=== PATIENT | male | born 1990 | race Caucasian/White ===

== ENCOUNTER 2018-04-23 06:50 | Emergency (ER) | payer OTHER, BC ==
--- NOTE | 2018-04-23 07:38 | ER Document Report ---
ED General - General Chief Complaint: Accidental Overdose Stated Complaint: POSSIBLE OVER DOSE Time Seen by Provider: 04/23/18 06:59 Mode of Arrival: Ambulatory Information source: Patient Notes: 28-year-old male with no reported past medical history presents with concern for exposure to opiates. 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 Patient does not know whether he inhaled it but states that shortly afterwards he got lightheaded and self-administered 5 mg of intranasal Narcan. Patient currently complaining of lightheadedness, a heavy chest and a warm flushed feeling throughout his body.. TRAVEL OUTSIDE OF THE [place] IN LAST 30 DAYS: No - HPI Onset: Just prior to arrival Onset/Duration: Sudden Quality of pain: No pain Severity: None Associated symptoms: Body/muscle aches, Headache Exacerbated by: Denies Relieved by: Denies Similar symptoms previously: No Recently seen / treated by doctor: No Past Medical History - General Information source: Patient - Social History Smoking Status: Never Smoker Chew tobacco use (# tins/day): Yes Smoking Education Provided: Yes Frequency of alcohol use: Occasional Drug Abuse: None Lives with: Family Family History: Reviewed & Not Pertinent Patient has suicidal ideation: No Patient has homicidal ideation: No - Medical History Medical History: Negative Review of Systems - Review of Systems Notes: REVIEW OF SYSTEMS: CONSTITUTIONAL : Denies fever, chills, or sweats. Denies recent illness. Denies weight loss, recent hospitalizations. EENT: Denies visual changes, eye pain. Denies nasal or sinus congestion or discharge. Denies sore throat, oral lesions, difficulty swallowing. CARDIOVASCULAR: Denies chest pain. Denies palpitations. Denies lower extremity edema. RESPIRATORY: Denies cough, cold, or chest congestion. Denies shortness of breath, wheezing. GASTROINTESTINAL: Denies abdominal pain or distention. Denies nausea, vomiting , or diarrhea. Denies blood in vomitus, stools, or per rectum. Denies black, tarry stools. Denies constipation. GENITOURINARY: Denies difficulty urinating, painful urination, frequency, blood in urine, or vaginal discharge. MUSCULOSKELETAL: Denies back or neck pain or stiffness. Denies joint pain or swelling. SKIN: Denies rash, lesions or sores. HEMATOLOGIC : Denies easy bruising or bleeding. LYMPHATIC: Denies swollen glands. NEUROLOGICAL: Denies confusion or altered mental status. Denies passing out or loss of consciousness. Denies headache. Denies weakness or paralysis. Denies problems difficulty with ambulation, slurred speech. Denies sensory loss , numbness, or tingling. Denies seizures. PSYCHIATRIC: Denies anxiety or stress. Denies depression, suicidal ideation, or homicidal ideation. Denies visual or auditory hallucinations. Physical Exam - Vital signs Vitals: Resp Pulse Ox 12 100 04/23/18 06:56 04/23/18 06:56 - Notes Notes: PHYSICAL EXAMINATION: GENERAL: Well-appearing, well-nourished and in no acute distress. HEAD: Atraumatic, normocephalic. EYES: Pupils equal round and reactive to light, extraocular movements intact, sclera anicteric, conjunctiva are normal. ENT: Nares patent, oropharynx clear without exudates. Moist mucous membranes. NECK: Normal range of motion, supple without lymphadenopathy LUNGS: Breath sounds clear to auscultation bilaterally and equal. No wheezes rales or rhonchi. HEART: Regular rate and rhythm without murmurs ABDOMEN: Soft, nontender, nondistended abdomen. No guarding, no rebound. No masses appreciated. Musculoskeletal: Normal range of motion, no pitting or edema. No cyanosis. NEUROLOGICAL: Cranial nerves grossly intact. Normal speech, normal gait. Normal sensory, motor exams PSYCH: Normal mood, normal affect. SKIN: Warm, Dry, normal turgor, no rashes or lesions noted. 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 He reports that he unfolded a dollar bill that unexpectedly had weight powder substance and it. He states that shortly after that exposure he became lightheaded and self-administered 5 mg of nasal Narcan. Patient was seen by myself upon arrival. Vital signs were reviewed. Patient is afebrile, normotensive and not hypoxic. Patient does not appear toxic or dehydrated. They are in no acute distress. Previous medical records and nursing notes reviewed. he has a normal physical exam. Urine drug screen is negative. I Believe it is highly unlikely that the patient ingested or inhaled any of the unknown substance. He did receive IV fluids and was monitored in the department for over 2-1/2 without incident. patient was reassured and discharged. Patient provided the opportunity to ask questions, and express concerns. Discharge instructions discussed. Patient is agreeable with discharge home. Return indications explained and discussed with the patient who displays understanding. Patient encouraged to return to the emergency department immediately with any concerns. 04/23/18 08:14 Patient reevaluated and remains alert, awake and in no distress. 04/23/18 11:47 04/23/18 11:48 04/23/18 11:51 - Vital Signs Vital signs: Temp Pulse Resp BP Pulse Ox 98.2 F 104 H 26 H 121/72 98 04/23/18 07:30 04/23/18 07:30 04/23/18 09:01 04/23/18 09:00 04/23/18 09:01 Discharge - Discharge Clinical Impression: drug exposure Condition: Good Disposition: HOME, SELF-CARE Instructions: Drug Screening ([facility]), Drug Toxicity ([facility]) Additional Instructions: Your urine drug screen was negative for any illicit drugs. Follow up with your physician tomorrow for further care or return to the ED IMMEDIATELY if symptoms worsen or new concerns occur. If you cannot afford to follow up with your primary care physician a list of low cost clinics have been provided at the end of your discharge papers as well. Forms: Return to Work Referrals: LOCAL,NO [NO LOCAL MD] - Follow up as needed
--- NOTE | 2018-04-23 07:52 | EKG REPORT ---
SEVERITY:- OTHERWISE NORMAL ECG - SINUS ARRHYTHMIA, RATE [id number] : Confirmed by: Juan Alberto Mckeon MD 23-Apr-2018 07:51:38
[2018-04-23 08:56] LABS: URINE AMPHETAMINES SCREEN NEGATIVE; URINE BARBITURATES SCREEN NEGATIVE; URINE BENZODIAZEPINES SCREEN NEGATIVE; URINE COCAINE SCREEN NEGATIVE; URINE MARIJUANA (THC) SCREEN NEGATIVE; URINE METHADONE SCREEN NEGATIVE; URINE PHENCYCLIDINE SCREEN NEGATIVE
[2018-04-23 09:07] VITALS: BP 121/72
== END 2018-04-23 09:12 | disposition home or self-care (01) ==
LOC: ER 06:50
DX: Z77.29 Contact with and (suspected) exposure to other hazardous substances (principal); R42 Dizziness and giddiness; R09.89 Other specified symptoms and signs involving the circulatory and respiratory systems; M79.1 Myalgia; R51 Headache
CPT/HCPCS: 80307; 93005; 93010; 99284